=== PATIENT | female | born 1950 | race Two or more races ===

== ENCOUNTER 2017-08-27 18:18 | Emergency (ER) | payer MEDICARE ==
--- NOTE | 2017-08-27 20:15 | ED Physician Chart ---
ED Chief Complaint/HPI - Patient Information Date Seen:: 08/27/17 Time Seen:: 19:13 Chief Complaint:: FALL History of Present Illness:: THIS IS A 66 YO FEMALE WHO STATES THAT SHE HAD A FALL YESTERDAY AND IS NOW CONCERNED ABOUT THE PAIN IN HER NECK AND LOWER BACK. SHE DENIES HITTING HER HEAD. SHE DENIES ANY PAIN IN THE EXTREMITIES. Allergies:: Allergies Allergy/AdvReac Type Severity Reaction Status Date / Time Penicillins Allergy Verified 08/27/17 19:08 Vitals:: Vital Signs - 8 hr 08/27/17 19:08 Temp 98.5 F HR 72 RR 18 BP 129/59 O2 Sat % 100 Historian:: Patient Review:: Nurse's Note Reviewed ED Review of Systems - Review of Systems General/Constitutional: No fever, No chills, No weight loss, No weakness, No diaphoresis, No edema, No loss of appetite Skin: No skin lesions, No rash, No bruising Head: No headache, No light-headedness Eyes: No loss of vision, No pain, No diplopia ENT: No earache, No nasal drainage, No sore throat, No tinnitus Neck: Neck pain, No swelling, No thyromegaly, No stiffness, No mass noted Cardio Vascular: No chest pain, No palpitations, No PND, No orthopnea, No edema Pulmonary: No SOB, No cough, No sputum, No wheezing GI: No nausea, No vomiting, No diarrhea, No pain, No melena, No hematochezia, No constipation, No hematemesis G/U: No dysuria, No frequency, No hematuria Musculoskeletal: No bone or joint pain, Back pain, No muscle pain Endocrine: No polyuria, No polydipsia Psychiatric: No prior psych history, No depression, No anxiety, No suicidal ideation Hematopoietic: No bruising, No lymphadenopathy Allergic/Immuno: No urticaria, No angioedema Neurological: No syncope, No focal symptoms, No weakness, No paresthesia, No headache, No seizure, No dizziness, No confusion, No vertigo ED Past Medical History - Past Medical History Obtainable: Yes Past Medical History: HTN, Other (OBESITY,) Family History: None Social History: Non Smoker, No Alcohol, No Drug Use, Employed Surgical History: None Psychiatricy History: None Medication: Reviewed Family Medical History - Family Member Father History Unknown: Yes Ethnicity: Living Status: Still Living Hx Family Hypertension: Yes ED Physical Exam - Physical Examination Other Gen/Cons comments:: OBESE Other Head comments:: NO TENDERNESS OF THE HEAD OR FACE Neck: Nontender (THE RANGE OF MOTION OF THE NECK WAS NORMAL WITH MINMAL PAIN 2/ 10) Misc: Normal back (VERY MINIMAL TENDERNESS OVER THE LUMBOSCARAL SPINE) ED Labs/Radiology/EKG Results - Radiology Results Results: X-RAY OF THE CERVICAL AND LUMBAR SPINE WERE WITHOUT ANY ACUTE FINDINGS. ED Assessment - Assessment General Assessment: CERVICAL AND LUMBAR STRAIN ED Septic Shock - . Is Septic Shock (SBP<90, OR Lactate>4 mmol\L) present?: No - <6hrs of presentation: Vital Signs: Vital Signs - 8 hr // 19:08 Temp 98.5 F HR 72 RR 18 BP 129/59 O2 Sat % 100 ED Reassessment (Disposition) - Reassessment Reassessment Condition:: Improved - Diagnosis Diagnosis:: CERVICAL AND LUMBAR STRAIN - Aftercare/Follow up Instructions Aftercare/Follow-Up Instructions:: Counseled pt regarding lab results/diagnosis & need follow up, Refer to Discharge Instructions, Counseled pt & family regarding lab results/diagnosis & need follow up - Patient Disposition Discharge/Transfer:: Home Condition at Disposition:: Improved ED Discharge Plan - Patient Disposition Admit/Discharge/Transfer: PT DISCHARGED HOME Condition at Disposition: Improved Instructions: Cervical Sprain, [id number]
--- NOTE | 2017-08-28 07:58 | Diagnostic Imaging Report ---
Cervical spine 3 views Indication: Trauma Comparison: none Findings: Exam is limited due to body habitus. No acute compression fracture. There is 2 mm anterolisthesis of C2 on C3. Moderate degenerative changes are seen greatest within the lower lumbar spine at C5-C7. Marginal osteophytic spurs are also seen greatest along the lower lumbar spine. AP views is also limited due to body habitus. The atlantodental articulation is preserved. The prevertebral soft tissues cannot be well evaluated on this exam due to positioning. Impression: Limited exam due to body habitus. No acute compression fracture is identified. There is 2 mm anterolisthesis of C2 on C3. This is nonspecific and may be due to degenerative etiology and facet arthropathy, however, traumatic etiology cannot be excluded. Correlation is to be made with clinical findings. Given history of trauma CT cervical spine is suggested for further assessment. Degenerative changes, greatest along the lower cervical spine. Suboptimal assessment of prevertebral soft tissues. Again CT would further clarify. In the setting of trauma, if clinical symptoms persist and there is continued concern for an occult fracture, follow up exams in 5-7 days is suggested.
--- NOTE | 2017-08-28 08:03 | Diagnostic Imaging Report ---
Lumbar spine 3 views Indication: Trauma Comparison: none Findings: Exam is limited due to body habitus. There appear to be 6 nonrib-bearing lumbar-type vertebral bodies. There appears to be mild vertebral body loss of height of T11 and T12 which may be chronic. Advanced degenerative changes are noted greatest in the facet joints. Multilevel disc space loss of height is also seen greatest at L5/L6 with moderate disc space loss of height at this level. There is also a 3 mm anterolisthesis of L4 on L5 and 4 mm anterolisthesis of L5 on L6. Mild Spinal scoliosis is noted. The SI joints demonstrate degenerative changes. Impression: Limited exam. There appear to be 6 nonrib-bearing lumbar-type vertebral bodies. Mild loss of height of the T11 and T12 vertebral bodies are noted which appear to be chronic. Otherwise no acute compression fracture. 3 mm anterolisthesis of L4 on L5 and 4 mm anterolisthesis of L5 on L6 likely due to facet arthropathy. Traumatic etiology cannot be excluded. Please correlate clinically. Given history of trauma, follow-up CT lumbar spine is suggested for further assessment Advanced degenerative changes. In the setting of trauma, if clinical symptoms persist and there is continued concern for an occult fracture, follow up exams in 5-7 days is suggested.
== END 2017-08-27 20:45 | disposition home or self-care (01) ==
LOC: ER 18:18
DX: S16.1XXA Strain of muscle, fascia and tendon at neck level, initial encounter (principal); I10 Essential (primary) hypertension; Z88.0 Allergy status to penicillin; W19.XXXA Unspecified fall, initial encounter; Y93.89 Activity, other specified; Y92.89 Other specified places as the place of occurrence of the external cause; Y99.8 Other external cause status; S39.012A Strain of muscle, fascia and tendon of lower back, initial encounter
CPT/HCPCS: 99284; 96372; 72040; 72100; J1885; Z7502